=== PATIENT | male | born 1980 ===

== ENCOUNTER 2022-07-14 07:35 | Outpatient (CLI) | payer OTHER, SELFPAY ==
--- NOTE | ~2022-07-14 | MR_ITS ---
EXAMINATION: MR knee LT wo con DATE: 07/14/2022 08:09 INDICATION: Chronic left knee pain. TECHNIQUE: Magnetic resonance imaging (MRI) of the left knee was performed without intravenous contra st. Sequences included axial PD-weighted FS FSE, coronal PD-weighted FSE and PD-weighted FS FSE, sagi ttal PD-weighted FSE, and sagittal T2-weighted FS FSE. COMPARISON: None. FINDINGS: Medial compartment: There is a complex tear of body and posterior horn of medial meniscus. There is cartilage surface irr egularity of tibial condyle and femoral condyle. There are tiny marginal osteophytes. Lateral compartment: Lateral meniscus is normal. Femoral cartilage is normal. There is cartilage surface irregularity of t ibial condyle. Patellofemoral compartment: There is deep cartilage fissuring of patellar medial facet, median ridge, and lateral facet with mild subchondral edema-like marrow signal intensity. Trochlear cartilage is normal. Ligaments and tendons: The anterior and posterior cruciate ligaments are normal. Medial collateral ligament and lateral alejandra ateral ligament complex are normal. There is mild patellar tendinopathy. Fluid: There is a moderate-sized knee joint effusion. There is a small ruptured Antunez's cyst. There is mild prepatellar and superficial infrapatellar bursitis. IMPRESSION: 1. Moderate chondrosis of patellofemoral compartment and mild chondrosis of medial and lateral compar tments. 2. Complex tear of medial meniscus. 3. Moderate-sized knee joint effusion. 4. Small ruptured Antunez's cyst. Reviewed, dictated and finalized at location A. [facility] COORDINATOR IMPRESSION: 1. Moderate chondrosis of patellofemoral compartment and mild chondrosis of med ial and lateral compartments. 2. Complex tear of medial meniscus. 3. Moderate-sized knee joint effusion. 4. Small ruptured Antunez's cyst.
== END 2022-07-14 07:36 ==
LOC: MICIMG 07:36
PROVIDERS: PCP Family Medicine; Visit Provider Orthopaedic Surgery
DX: S83.232A Complex tear of medial meniscus, current injury, left knee, initial encounter (principal); X58.XXXA Exposure to other specified factors, initial encounter; M25.462 Effusion, left knee
CPT/HCPCS: 73721